=== PATIENT | male | born 1950 | race Caucasian/White ===

== ENCOUNTER 2017-02-22 22:18 | Emergency (ER) | payer OTHER ==
--- NOTE | ~2017-02-22 | EKG ---
PATIENT: JENNY STOVER UNIT #: [id number] Ventricular Rate: 60 BPM Atrial Rate: 60 BPM P-R Interval: 184 ms QRS Duration: 90 ms Q-T Interval: 426 ms QTC Calculation(Bezet): 426 ms P [place]: 53 degrees Calculated R [place]: 53 degrees Calculated T [place]: 69 degrees Diagnosis Line: Normal sinus rhythm Diagnosis Line: Normal ECG Diagnosis Line: No previous ECGs available Diagnosis Line: Confirmed by FERNY WILDE MD ([id number]) on Diagnosis Line: 02/25/2017 5:09:24 PM INTERPRETING MDPresley HOLLAND
[~2017-02-22 22:18] MED LIST: ASPIRIN PO; AVANDIA PO; CRESTOR PO; DYAZIDE 37.5/251 CAP PO; KLOR-CON PO; LISINOPRIL PO; PHENERGAN PO; PREVACID PO; PRILOSEC PO
== END 2017-02-22 23:49 | disposition home or self-care (01) ==
LOC: SED 22:18
DX: I10 Essential (primary) hypertension (principal)
CPT/HCPCS: 93005; 99283